=== PATIENT | female | born 1950 | race Caucasian/White ===

== ENCOUNTER 2021-04-01 08:00 | Outpatient (CLI) | payer MEDICARE, OTHER ==
--- NOTE | 2021-04-01 18:06 | XRAY Report ---
PROCEDURE: Chest 2 View X-Ray INDICATIONS: Exertional shortness of breath TECHNIQUE: 2 view(s) of the chest. COMPARISON: Thoracic spine radiographs 09/30/2011 FINDINGS: Surgical changes and devices: None. Lungs and pleura: No pleural effusions or pneumothorax. Lungs are clear. Mediastinum: Moderate-sized hiatal hernia, slightly increased from the thoracic spine radiographs obt and September 2011. Heart size appears to be within normal limits. Bones and chest wall: No suspicious bony abnormalities. Soft tissues appear unremarkable. IMPRESSION: No acute cardiopulmonary process demonstrated radiographically. Moderate size hiatal her lucas. Reviewed by: Dylan Mayberry MD on 04/01/2021 6:05 PM PDT Approved by: Dylan Mayberry MD on 04/01/2021 6:05 PM PDT Station ID: [id number]
== END 2021-04-01 23:59 | disposition home or self-care (01) ==
LOC: DI.S 08:00
PROVIDERS: ATTEND Physician Assistant Medical
DX: R06.09 Other forms of dyspnea (principal); R42 Dizziness and giddiness; K44.9 Diaphragmatic hernia without obstruction or gangrene

== ENCOUNTER 2021-04-01 08:00 | Outpatient (CLI) | payer MEDICARE, OTHER ==
[2021-04-01 20:04] LABS: BASOPHILS % (AUTO) 0.7 %; EOSINOPHILS # (AUTO) 0.1 10^3/uL (0.0-0.7); EOSINOPHILS % (AUTO) 2.1 %; HCT - HEMATOCRIT 28.1 % (37.0-47.0); HGB - HEMOGLOBIN 7.7 g/dL (12.0-16.0); LYMPHOCYTES # (AUTO) 1.9 10^3/uL (1.5-3.5); LYMPHOCYTES % (AUTO) 33.6 %; MEAN CORPUSCULAR HGB CONC 27.4 g/dL (32.0-36.0); MEAN CORPUSCULAR VOLUME 87.5 fL (81.0-99.0); MEAN PLATELET VOLUME 10.6 fL (7.9-10.8); MONOCYTES # (AUTO) 0.3 10^3/uL (0.0-1.0); MONOCYTES % (AUTO) 5.6 %; NEUTROPHILS # (AUTO) 3.3 10^3/uL (1.5-6.6); NEUTROPHILS % (AUTO) 57.7 %; PLT - PLATELET COUNT 50 10^3/uL (130-450); RED BLOOD COUNT 3.21 10^6/uL (4.20-5.40); RED CELL DISTRIBUTION WIDTH 15.6 % (12.0-15.0); WHITE BLOOD COUNT 5.8 x10^3/uL (4.8-10.8)
[2021-04-01 20:16] LABS: ALBUMIN 4.3 g/dL (3.2-5.5); ALBUMIN/GLOBULIN RATIO 1.2 (1.0-2.2); ALKALINE PHOSPHATASE 73 IU/L (42-121); ALT ALANINE AMINOTRANSFERASE 24 IU/L (10-60); AST ASPARTATE AMINOTRANSFERASE 23 IU/L (10-42); BILIRUBIN,TOTAL 0.7 mg/dL (0.2-1.0); BUN - BLOOD UREA NITROGEN 15 mg/dL (6-20); CALCIUM 9.9 mg/dL (8.5-10.3); CARBON DIOXIDE - CO2 27 mmol/L (21-32); CHLORIDE 104 mmol/L (101-111); CHOLESTEROL 227 mg/dL; CREATININE 0.6 mg/dL (0.4-1.0); GFR - MDRD 98 (>89); GLUCOSE 93 mg/dL (70-100); HDL CHOLESTEROL 76 mg/dL; LDL CHOLESTEROL,CALCULATED 126 mg/dL; LDL/HDL RATIO 1.7 (<4.4); POTASSIUM 3.9 mmol/L (3.5-5.0); SODIUM 141 mmol/L (135-145); TOTAL PROTEIN 7.9 g/dL (6.7-8.2); TRIGLYCERIDES 126 mg/dL; VLDL CHOLESTEROL 25 mg/dL
[2021-04-01 20:30] LABS: THYROID STIMULATING HORMONE 3.55 uIU/mL (0.34-5.60)
== END 2021-04-01 23:59 | disposition home or self-care (01) ==
LOC: LAB.S 08:00
PROVIDERS: ATTEND Physician Assistant Medical
DX: R06.09 Other forms of dyspnea (principal); R42 Dizziness and giddiness
CPT/HCPCS: 36415; 80053; 80061; 83721; 84443; 84484; 85025; 85379

== ENCOUNTER 2021-04-01 21:46 | Emergency (ER) | payer MEDICARE, OTHER ==
[2021-04-01] MEDS ORDERED: IOVERSOL 320 100 ML VIAL IVP ONE ×2 (22:12→23:00)
--- NOTE | 2021-04-01 22:40 | ED Physician Documentation ---
History of Present Illness - Stated complaint Stated Complaint: SOA/LIGHTHEADED - Chief complaint Chief Complaint: General - History obtained from History obtained from: Patient, Other (Dr. Ayala, pcp (d/w Dr Carney prior to sending patient here)) - Additonal information Additional information: 71-year-old woman presents with several weeks to months progressive dyspnea on exertion and weakness for which she saw Dr. Ayala today and had blood work done. Dr. Carreno sent her here with concern for elevated D-dimer, as well as derangements in her CBC including anemia with hemoglobin of 7.8. Patient endorses a history of ulcerative colitis but denies any rectal bleeding or dark stools. Denies vaginal bleeding or any other source of bleeding. endorses some intermittent dizziness over the past several weeks that is not acutely worsening today. denies cough or hemoptysis. no leg swelling. Review of Systems Ten Systems: 10 systems reviewed and negative Constitutional: denies: Fever, Chills Cardiac: denies: Chest pain / pressure Respiratory: reports: Dyspnea. denies: Cough GI: denies: Abdominal Pain, Bloody / black stool PD PAST MEDICAL HISTORY - Present Medications Home Medications: Ambulatory Orders Medication Instructions Recorded Confirmed Apixaban [Eliquis] 5 mg PO BID #30 tablet 04/02/21 Apixaban [Eliquis] 10 mg PO BID 10 Days #20 tablet 04/02/21 - Allergies Allergies/Adverse Reactions: Allergies Allergy/AdvReac Type Severity Reaction Status Date / Time No Known Drug Allergies Allergy Verified 04/01/21 21:59 PD ED PE NORMAL - Vitals Vital signs reviewed: Yes - General General: Alert and oriented X 3, No acute distress, Well developed/nourished - HEENT HEENT: Atraumatic, PERRL, EOMI - Neck Neck: Supple, no meningeal sign - Cardiac Cardiac: RRR - Respiratory Respiratory: No respiratory distress, Clear bilaterally - Abdomen Abdomen: Non tender, Non distended - Derm Derm: Normal color, Warm and dry - Extremities Extremities: No deformity - Neuro Neuro: Alert and oriented X 3 - Psych Psych: Normal mood, Normal affect Results - Vitals Vitals: Vital Signs - 24 hr 04/01/21 04/01/21 04/02/21 21:50 23:00 00:00 Temperature 36.5 C Heart Rate 98 88 82 Respiratory 18 17 16 Rate Blood Pressure 150/92 H 143/88 H 129/78 O2 Saturation 100 100 99 04/02/21 01:20 Temperature 36.5 C Heart Rate 88 Respiratory 16 Rate Blood Pressure 125/73 O2 Saturation 98 Oxygen O2 Source Room air - EKG (time done) 2208 Rate: Rate (enter#) (96) Rhythm: NSR Intervals: Normal [place] QRS: Normal Ischemia: Other (LVH, TWI in lead 3) - Labs Labs: Microbiology 04/02/21 00:12 Occult Blood - Final Stool Laboratory Tests 04/01/21 04/01/21 04/01/21 22:31 22:31 22:31 WBC 7.0 RBC 2.98 L Hgb 7.3 L Hct 25.0 L MCV 83.9 MCH 24.5 L MCHC 29.2 L RDW 15.6 H Plt Count 393 MPV 8.6 Neut # (Auto) 4.7 Lymph # (Auto) 1.5 [place] # (Auto) 0.6 Eos # (Auto) 0.1 Baso # (Auto) 0.1 Absolute Nucleated RBC 0.00 Nucleated RBC % 0.0 PT INR APTT VBG pH VBG pCO2 VBG pO2 VBG HCO3 VBG Total CO2 VBG O2 Saturation VBG Base Excess Sodium 136 Potassium 3.7 Chloride 100 L Carbon Dioxide 27 Anion Gap 9.0 BUN 17 Creatinine 0.6 Estimated GFR (MDRD) 98 Glucose 142 H Calcium 9.0 Troponin I High Sens B-Natriuretic Peptide Blood Type O NEGATIVE Antibody Screen NEGATIVE 04/01/21 04/01/21 04/01/21 22:31 22:31 22:31 WBC RBC Hgb Hct MCV MCH MCHC RDW Plt Count MPV Neut # (Auto) Lymph # (Auto) [place] # (Auto) Eos # (Auto) Baso # (Auto) Absolute Nucleated RBC Nucleated RBC % PT INR APTT VBG pH 7.388 VBG pCO2 39.5 L VBG pO2 50.7 H VBG HCO3 23.3 VBG Total CO2 24.5 VBG O2 Saturation 82.6 H VBG Base Excess -1.6 Sodium Potassium Chloride Carbon Dioxide Anion Gap BUN Creatinine Estimated GFR (MDRD) Glucose Calcium Troponin I High Sens 4.0 B-Natriuretic Peptide 76 Blood Type Antibody Screen 04/01/21 22:31 WBC RBC Hgb Hct MCV MCH MCHC RDW Plt Count MPV Neut # (Auto) Lymph # (Auto) [place] # (Auto) Eos # (Auto) Baso # (Auto) Absolute Nucleated RBC Nucleated RBC % PT 11.0 INR 1.0 APTT 26.7 VBG pH VBG pCO2 VBG pO2 VBG HCO3 VBG Total CO2 VBG O2 Saturation VBG Base Excess Sodium Potassium Chloride Carbon Dioxide Anion Gap BUN Creatinine Estimated GFR (MDRD) Glucose Calcium Troponin I High Sens B-Natriuretic Peptide Blood Type Antibody Screen PD MEDICAL DECISION MAKING - ED course ED course: 71-year-old woman presents with some subsegmental PE. Eliquis prescribed and Lovenox shot provided here in the emergency department. Patient has had ongoing symptoms for several weeks and is not acutely dizzy in the emergency department has no chest pain or shortness of breath, has no signs of demand ischemia on blood work therefore will hold off on transfusion for now. Rectal exam brown stool. Strict return precautions discussed. Patient will follow up with Dr. Ayala. Departure - Departure Disposition: Home, Self Care Clinical Impression: Pulmonary embolism, Anemia Condition: Stable Instructions: Embolism Pulmonary Dc Follow-Up: Carlyle Ayala DO [Provider Admit Priv/Credential] - Prescriptions: Apixaban [Eliquis] 10 mg PO BID 10 Days #20 tablet Apixaban [Eliquis] 5 mg PO BID #30 tablet Comments: You were seen in the emergency department for pulmonary embolism and for anemia. Your hemoglobin today was 7.3 in the emergency department. Please return immediately if you have any signs of bleeding, any new or worsening symptoms or other concerns. Follow-up with Dr. Ayala this week. You will need further workup to find out the cause of your anemia and pulmonary embolism. Take eliquis 10 mg twice daily for 7 days followed by 5 mg twice daily. I have provided enough medicine for one month supply. Dr. Ayala will continue your prescription. Discharge Date/Time: 04/02/21 01:20
[2021-04-01 22:43] LABS: BASOPHILS # (AUTO) 0.1 10^3/uL (0.0-0.1); BASOPHILS % (AUTO) 0.7 %; EOSINOPHILS # (AUTO) 0.1 10^3/uL (0.0-0.7); HGB - HEMOGLOBIN 7.3 g/dL (12.0-16.0); LYMPHOCYTES # (AUTO) 1.5 10^3/uL (1.5-3.5); LYMPHOCYTES % (AUTO) 21.3 %; MEAN CORPUSCULAR HEMOGLOBIN 24.5 pg (27.0-31.0); MEAN CORPUSCULAR HGB CONC 29.2 g/dL (32.0-36.0); MEAN CORPUSCULAR VOLUME 83.9 fL (81.0-99.0); MEAN PLATELET VOLUME 8.6 fL (7.9-10.8); MONOCYTES # (AUTO) 0.6 10^3/uL (0.0-1.0); MONOCYTES % (AUTO) 8.5 %; NEUTROPHILS # (AUTO) 4.7 10^3/uL (1.5-6.6); NEUTROPHILS % (AUTO) 67.2 %; PLT - PLATELET COUNT 393 10^3/uL (130-450); RED BLOOD COUNT 2.98 10^6/uL (4.20-5.40); RED CELL DISTRIBUTION WIDTH 15.6 % (12.0-15.0)
[2021-04-01 22:47] LABS: VBG BASE EXCESS -1.6 mmol/L (-2 - +2); VBG HCO3 23.3 mmol/L (23-28); VBG PCO2 39.5 mmHg (41-51); VBG PH 7.388 (7.31-7.41); VBG PO2 50.7 mmHg (25-47); VBG TOTAL CO2 24.5 mmol/L (24-29)
[2021-04-01 22:48] LABS: VBG OXYGEN SATURATION 82.6 % (60-80)
[2021-04-01 22:54] LABS: CREATININE 0.6 mg/dL (0.4-1.0); POTASSIUM 3.7 mmol/L (3.5-5.0)
[2021-04-01 22:58] LABS: PARTIAL THROMBOPLASTIN TIME 26.7 secs (24.9-33.3)
--- NOTE | 2021-04-01 23:26 | CT Report ---
PROCEDURE: ANGIO CHEST W/WO INDICATIONS: Protocol, dyspnea, high D-dimer CONTRAST: IV CONTRAST: Optiray 320 ml: 80 PO CONTRAST: *NO PO CONTRAST TECHNIQUE: After the administration of intravenous contrast, 2 mm axial images were acquired from the pulmonary apices to the posterior costophrenic angles during the arterial phase. In addition, 1 mm lung kernel and 5 mm soft tissue kernel reconstructions were performed. 3-dimensional coronal oblique maximum int ensity projection (MIP) reformats, 8 mm axial MIP, and 5 mm coronal and sagittal MPR reformats were t hen performed through the thorax. For radiation dose reduction, the following was used: automated exp osure control, adjustment of mA and/or kV according to patient size. COMPARISON: Chest radiographs performed earlier the same day. FINDINGS: Image quality: Excellent. Pulmonary arteries: Pulmonary arteries are normal in size. A few small filling defects are seen in t he peripheral subsegmental branches of the right lower lobe pulmonary artery is (for example, image 5 7 of series 5). There is nonopacification of a few peripheral subsegmental branches of the right uppe r lobe pulmonary artery. A subsegmental branch of the posterolateral left lung base is also noted. Gi thierry the small size and peripheral nature of the emboli as well as nonbreath-hold technique, additiona l small peripheral pulmonary emboli are not excluded. Lungs and pleura: No acute pulmonary opacity. Atelectasis is seen in the medial lung bases adjacent t o the hernia. No pleural effusions or pneumothorax. Central and peripheral airways are patent. Mediastinum: Heart size is normal, without pericardial effusion. No mediastinal or hilar adenopathy . Thoracic aorta is normal in caliber and enhancement. Esophagus is normal in caliber. A moderate h iatal hernia is present. Bones and chest wall: No suspicious bony lesions. No acute compression fracture is seen in the spine . No axillary or supraclavicular adenopathy. The thyroid is unremarkable. Abdomen: Cholelithiasis. A simple appearing cyst is seen in the right kidney. Visualized upper abdom inal solid organs otherwise appear normal in the early arterial phase of enhancement. IMPRESSION: 1.A few small subsegmental pulmonary emboli are seen peripherally in the bilateral lung bases and rig ht upper lobe. No signs of right heart strain. 2.Moderate hiatal hernia. 3.Cholelithiasis. An attempt was made to reach the treating emergency room physician by telephone at the time of this d ictation. Reviewed by: Too Harris MD on 04/01/2021 11:25 PM PDT Approved by: Too Harris MD on 04/01/2021 11:25 PM PDT Station ID: [id number]
[2021-04-02] MEDS ORDERED: ENOXAPARIN 80 MG/0.8 ML SYRINGE SUBQ STA (00:47)
[2021-04-02 01:21] VITALS: BP 125/73
== END 2021-04-02 01:20 | disposition home or self-care (01) ==
LOC: ED 21:46
DX: I26.94 Multiple subsegmental thrombotic pulmonary emboli without acute cor pulmonale (principal); D64.9 Anemia, unspecified; R06.09 Other forms of dyspnea; R42 Dizziness and giddiness; K44.9 Diaphragmatic hernia without obstruction or gangrene
CPT/HCPCS: 36415; 71046; 71275; 80048; 80053; 80061; 82270; 82803; 83880; 84443; 84484; 85025; 85379; 85610; 85730; 86850; 86900; 86901; 93005; 96372; 99283; 99284; J1650; Q9967; 82274; 83721

== ENCOUNTER 2021-04-03 15:25 | Outpatient (CLI) | payer MEDICARE, OTHER ==
[2021-04-03 20:02] LABS: BASOPHILS # (AUTO) 0.1 10^3/uL (0.0-0.1); BASOPHILS % (AUTO) 0.8 %; EOSINOPHILS # (AUTO) 0.2 10^3/uL (0.0-0.7); EOSINOPHILS % (AUTO) 2.6 %; HCT - HEMATOCRIT 25.2 % (37.0-47.0); HGB - HEMOGLOBIN 7.5 g/dL (12.0-16.0); LYMPHOCYTES # (AUTO) 1.8 10^3/uL (1.5-3.5); LYMPHOCYTES % (AUTO) 28.8 %; MEAN CORPUSCULAR HEMOGLOBIN 24.8 pg (27.0-31.0); MEAN CORPUSCULAR HGB CONC 29.8 g/dL (32.0-36.0); MEAN CORPUSCULAR VOLUME 83.4 fL (81.0-99.0); MEAN PLATELET VOLUME 9.3 fL (7.9-10.8); MONOCYTES # (AUTO) 0.5 10^3/uL (0.0-1.0); MONOCYTES % (AUTO) 8.1 %; NEUTROPHILS # (AUTO) 3.7 10^3/uL (1.5-6.6); NEUTROPHILS % (AUTO) 59.5 %; PLT - PLATELET COUNT 450 10^3/uL (130-450); RED BLOOD COUNT 3.02 10^6/uL (4.20-5.40); RED CELL DISTRIBUTION WIDTH 15.7 % (12.0-15.0); WHITE BLOOD COUNT 6.3 x10^3/uL (4.8-10.8)
[2021-04-03 20:18] LABS: % IRON SATURATION 6 % (20-50); IRON 30 ug/dL (28-170); TOTAL IRON BINDING CAPACITY 503 ug/dL (250-450); TRANSFERRIN 359 mg/dL (192-382)
[2021-04-03 20:32] LABS: FERRITIN 4.9 ng/mL (11.0-306.8)
== END 2021-04-03 15:26 | disposition home or self-care (01) ==
LOC: LAB.S 15:25
PROVIDERS: ATTEND Internal Medicine
DX: D64.9 Anemia, unspecified (principal); R06.09 Other forms of dyspnea; R42 Dizziness and giddiness
CPT/HCPCS: 36415; 81001; 82607; 82728; 83540; 83615; 84466; 85025; 87086

== ENCOUNTER 2021-04-16 14:34 | Outpatient (CLI) | payer MEDICARE, OTHER | END 2021-04-16 14:35 | disposition home or self-care (01) | LOC: LAB.S 14:34 | PROVIDERS: ATTEND Internal Medicine | DX: E61.1 Iron deficiency (principal); Z79.01 Long term (current) use of anticoagulants; Z86.711 Personal history of pulmonary embolism | CPT/HCPCS: 36416; 85610 ==

== ENCOUNTER 2021-08-09 14:23 | Outpatient (CLI) | payer MEDICARE, OTHER ==
[2021-08-09 20:01] LABS: BASOPHILS # (AUTO) 0.1 10^3/uL (0.0-0.1); BASOPHILS % (AUTO) 0.8 %; EOSINOPHILS # (AUTO) 0.1 10^3/uL (0.0-0.7); EOSINOPHILS % (AUTO) 2.3 %; HGB - HEMOGLOBIN 12.4 g/dL (12.0-16.0); LYMPHOCYTES # (AUTO) 1.6 10^3/uL (1.5-3.5); MEAN CORPUSCULAR HEMOGLOBIN 29.2 pg (27.0-31.0); MEAN CORPUSCULAR VOLUME 94.1 fL (81.0-99.0); MEAN PLATELET VOLUME 9.6 fL (7.9-10.8); MONOCYTES # (AUTO) 0.6 10^3/uL (0.0-1.0); MONOCYTES % (AUTO) 9.2 %; NEUTROPHILS # (AUTO) 3.6 10^3/uL (1.5-6.6); NEUTROPHILS % (AUTO) 60.4 %; PLT - PLATELET COUNT 367 10^3/uL (130-450); RED BLOOD COUNT 4.25 10^6/uL (4.20-5.40); RED CELL DISTRIBUTION WIDTH 15.7 % (12.0-15.0)
[2021-08-09 20:07] LABS: INR 1.1 (0.8-1.2); PT - PROTHROMBIN TIME 11.9 secs (9.9-12.6)
== END 2021-08-09 14:24 | disposition home or self-care (01) ==
LOC: LAB.S 14:23
PROVIDERS: ATTEND Internal Medicine
DX: E61.1 Iron deficiency (principal); D64.9 Anemia, unspecified; Z86.711 Personal history of pulmonary embolism; Z79.01 Long term (current) use of anticoagulants
CPT/HCPCS: 36415; 81001; 82728; 85025; 85610; 87086

== ENCOUNTER 2022-09-29 10:55 | Inpatient (IN) | payer MEDICARE, OTHER ==
[2022-09-29 11:47] LABS: BASOPHILS # (AUTO) 0.1 10^3/uL (0.0-0.1); BASOPHILS % (AUTO) 1.1 %; EOSINOPHILS # (AUTO) 0.1 10^3/uL (0.0-0.7); EOSINOPHILS % (AUTO) 0.9 %; HCT - HEMATOCRIT 28.3 % (37.0-47.0); HGB - HEMOGLOBIN 7.7 g/dL (12.0-16.0); LYMPHOCYTES # (AUTO) 0.8 10^3/uL (1.5-3.5); LYMPHOCYTES % (AUTO) 11.3 %; MEAN CORPUSCULAR HEMOGLOBIN 23.5 pg (27.0-31.0); MEAN CORPUSCULAR HGB CONC 27.2 g/dL (32.0-36.0); MEAN CORPUSCULAR VOLUME 86.3 fL (81.0-99.0); MONOCYTES # (AUTO) 0.4 10^3/uL (0.0-1.0); MONOCYTES % (AUTO) 5.9 %; NEUTROPHILS % (AUTO) 80.1 %; NRBC ABSOLUTE COUNT (AUTO) 0.07 x10^3/uL; NUCLEATED RED BLOOD CELLS AUTO 0.9 /100WBC; PLT - PLATELET COUNT 506 10^3/uL (130-450); RED BLOOD COUNT 3.28 10^6/uL (4.20-5.40); RED CELL DISTRIBUTION WIDTH 20.3 % (12.0-15.0); WHITE BLOOD COUNT 7.5 x10^3/uL (4.8-10.8)
[2022-09-29 11:52] LABS: SLIDE REVIEW? Indicated
[2022-09-29 11:58] LABS: PT - PROTHROMBIN TIME 11.5 secs (9.9-12.6)
--- NOTE | 2022-09-29 12:03 | XRAY Report ---
PROCEDURE: Chest 1 View X-Ray INDICATIONS: Chest Pain TECHNIQUE: One view of the chest was acquired. COMPARISON: None. FINDINGS: Surgical changes and devices: None. Lungs and pleura: No pleural effusions or pneumothorax. Lungs are clear. Mediastinum: Mediastinal contours appear normal. Heart size is normal. Bones and chest wall: No suspicious bony lesions. Overlying soft tissues appear unremarkable. IMPRESSION: No acute cardiopulmonary process. Reviewed by: Gerardo Vernon on 09/29/2022 12:02 PM PDT Approved by: Gerardo Vernon on 09/29/2022 12:02 PM PDT Station ID: [id number]
[2022-09-29 12:08] LABS: ALBUMIN 3.9 g/dL (3.2-5.5); ALBUMIN/GLOBULIN RATIO 1.3 (1.0-2.2); BILIRUBIN,TOTAL 0.3 mg/dL (0.2-1.0); CREATININE 0.8 mg/dL (0.4-1.0); POTASSIUM 3.8 mmol/L (3.5-5.0)
[2022-09-29] MEDS ORDERED: iohexoL-300 100 ML VIAL ONE (12:36)
--- NOTE | 2022-09-29 12:43 | ED Physician Documentation ---
History of Present Illness - Stated complaint Stated Complaint: SOA - Chief complaint Chief Complaint: Resp - Additonal information Additional information: Patient is a good historian. 72-year-old female presents to the emergency department for evaluation of exertional dyspnea. She states that about 5 weeks ago she had a head and chest cold and since then she has had some progressive shortness of air that has not improved. However in march 2021 the patient was found to have a subsegmental pulmonary embolism. She was initially rx Eliquis, but found it cost-prohibitive. Therefore her pcp started her on coumadin, but within 48 hours of taking it she was having gum bleeding and melena. Subsequently, she was able to start taking the eliquis and took it for nearly a year. However she states it always made her legs hurt and she felt "crummy" on it. In March 2022, she noted that she had melena so she stopped taking the Eliquis. She states that the melena resolved after about 5 days. She has a history of anemia and has been taking a lot of iron to help with that thus she often reports dark or melenic appearing stools. Patient reports that over the last several days she is unable to walk even short distances without severe shortness of air. She is denying chest pain. No orthopnea. No unilateral leg swelling. No recent surgeries, immobilization. Denies any history of cancer. The patient has a reported history of ulcerative colitis. Has not had a colonoscopy for 15 years. Reports that it is self managed with diet and biofeedback. PD PAST MEDICAL HISTORY - Past Surgical History Past Surgical History: Yes - Present Medications Home Medications: Ambulatory Orders Medication Instructions Recorded Confirmed Apixaban [Eliquis] 5 mg PO BID #30 tablet 04/02/21 Apixaban [Eliquis] 10 mg PO BID 10 Days #20 tablet 04/02/21 - Allergies Allergies/Adverse Reactions: Allergies Allergy/AdvReac Type Severity Reaction Status Date / Time No Known Drug Allergies Allergy Verified 09/29/22 11:10 - Social History Does the pt smoke?: No Smoking Status: Never smoker Does the pt drink ETOH?: No Does the pt have substance abuse?: No - Immunizations Immunizations are current?: No Immunizations: TDAP >10years/unknown PD ED PE NORMAL - General General: Alert and oriented X 3, No acute distress - HEENT HEENT: PERRL - Neck Neck: Supple, no meningeal sign, No adenopathy - Cardiac Cardiac: RRR (Mild tachycardia sinus rhythm on the monitor, rate of 100), Strong equal pulses - Respiratory Respiratory: No respiratory distress, Clear bilaterally - Abdomen Abdomen: Normal bowel sounds, Soft, Non tender - Rectal Rectal: Other (Digital rectal exam reveals a dark brown stool. No tenderness. Guaiac pending) - Back Back: No CVA TTP, No spinal TTP - Derm Derm: Normal color, Warm and dry, No rash - Extremities Extremities: No deformity - Neuro Neuro: Alert and oriented X 3, sports centre manager 2-12 intact Eye Opening: Spontaneous Motor: Obeys Commands Verbal: Oriented GCS Score: 15 Results - Vitals Vitals: Vital Signs - 24 hr 09/29/22 09/29/22 11:05 13:30 Temperature 36.6 C Heart Rate 110 H 95 Respiratory 16 18 Rate Blood Pressure 140/83 H 155/78 H O2 Saturation 97 97 Oxygen O2 Source Room air - EKG (time done) 1128 EKG releavant findings:: EKG personally interpreted by author of this note. Relevant findings are: Rate: Rate (enter#) (101), Tachy (101) Rhythm: NSR [place]: Normal Intervals: Normal [place] QRS: Normal Ischemia: Normal ST segments Compare to prior EKG: Old EKG unavailable Computer interpretation: Agree with computer - Labs Labs: Microbiology 09/29/22 12:45 Occult Blood - Final Stool Laboratory Tests 09/29/22 09/29/22 09/29/22 11:42 11:42 11:42 WBC 7.5 RBC 3.28 L Hgb 7.7 L Hct 28.3 L MCV 86.3 MCH 23.5 L MCHC 27.2 L RDW 20.3 H Plt Count 506 H MPV 9.0 Neut # (Auto) 6.0 Lymph # (Auto) 0.8 L [place] # (Auto) 0.4 Eos # (Auto) 0.1 Baso # (Auto) 0.1 Absolute Nucleated RBC 0.07 Nucleated RBC % 0.9 Manual Slide Review Indicated RBC Morph Micro Appear 2+ ANISOCYTOSIS PT 11.5 INR 1.0 D-Dimer Sodium 138 Potassium 3.8 Chloride 106 Carbon Dioxide 24 Anion Gap 8.0 BUN 17 Creatinine 0.8 Estimated GFR (MDRD) 70 L Glucose 111 H Calcium 9.0 Total Bilirubin 0.3 AST 22 ALT 19 Alkaline Phosphatase 84 Troponin I High Sens B-Natriuretic Peptide Total Protein 7.0 Albumin 3.9 Globulin 3.1 Albumin/Globulin Ratio 1.3 Lipase 31 09/29/22 09/29/22 09/29/22 11:42 11:42 11:43 WBC RBC Hgb Hct MCV MCH MCHC RDW Plt Count MPV Neut # (Auto) Lymph # (Auto) [place] # (Auto) Eos # (Auto) Baso # (Auto) Absolute Nucleated RBC Nucleated RBC % Manual Slide Review RBC Morph Micro Appear PT INR D-Dimer 781.5 H Sodium Potassium Chloride Carbon Dioxide Anion Gap BUN Creatinine Estimated GFR (MDRD) Glucose Calcium Total Bilirubin AST ALT Alkaline Phosphatase Troponin I High Sens 8.3 B-Natriuretic Peptide 73 Total Protein Albumin Globulin Albumin/Globulin Ratio Lipase - Rads (name of study) cxr Relevant Findings:: Final report received (No acute cardiopulmonary process) CT angio Relevant Findings:: Final report received (Large burden of segmental pulmonary emboli with findings concerning for heart strain. Large hiatal hernia.) PD Medical Decision Making - ED course Complexity details: reviewed results, re-evaluated patient, considered differential, d/w patient, d/w curriculum consultant ED course: [id number] female who has a reported history of ulcerative colitis and anemia presents to the emergency department for evaluation of 5 weeks of exertional dyspnea. She does have a history of previous pulmonary embolus diagnosed in March 2021. She reports she did not tolerate Coumadin as it caused immediate gum and GI bleeding. Subsequently she took Eliquis for about 1 year. She states it made her feel crummy but she reports she again developed melena in March 2022 and on her own accord stopped taking it. Here in the emergency department our differential included ACS, recurrent PE, pneumonia. CBC, electrolytes D-dimer, troponin were all completed. Per my interpretation she has a fairly profound anemia with a hemoglobin of 7.7. This is in contrast to a relatively normal hemoglobin in July 2021 which was 12. Patient reports dark stools but also admits to taking iron. I did do a stool guaiac and it was negative. The source of the anemia is not clear though the patient does report a history of ulcerative colitis. She has reportedly never been seen by hemat ologist/oncologist and has not had a colonoscopy for at least 15 years. Patient is mildly tachycardic at rest with a heart rate of about 100 but with ambulation it goes into the 120s. She is not hypotensive. Her D-dimer was noted to be elevated. She had a high pretest probability of having a recurrent PE given her history and subsequently a CT pulmonary angiogram was ordered. Per the radiologist interpretation there are large bilateral segmental PEs causing a moderate amount of right heart strain. Given this finding the patient would indeed benefit from inpatient hospitalization, transition to anticoagulation and an echocardiogram. I spoken with our hospitalist today Dr. Ventura who agrees to bring the patient in. I have started her with a dose of Lovenox 80 mg subcutaneously. I have also discussed with the patient the plan to bring her in for at least 24 hours observation in order to obtain the appropriate echo and she is in agreement. Departure - Departure Disposition: ED Place in Observation Clinical Impression: Anemia Pulmonary embolism Qualifiers: Pulmonary embolism type: other Chronicity: acute Acute cor pulmonale presence: unspecified Qualified Code(s): I26.99 - Other pulmonary embolism without acute cor pulmonale
[2022-09-29] MEDS ORDERED: iohexoL-300 100 ML VIAL IVP ONE (13:29)
--- NOTE | 2022-09-29 13:48 | CT Report ---
PROCEDURE: ANGIO CHEST W/WO INDICATIONS: SOA; hx of PE; + anemia CONTRAST: 80ml Omnipaque 300 TECHNIQUE: After the administration of intravenous contrast, 2 mm axial images were acquired from the pulmonary apices to the posterior costophrenic angles during the arterial phase. In addition, 1 mm lung kernel and 5 mm soft tissue kernel reconstructions were performed. 3-dimensional coronal oblique maximum int ensity projection (MIP) reformats, 8 mm axial MIP, and 5 mm coronal and sagittal MPR reformats were t hen performed through the thorax. For radiation dose reduction, the following was used: automated exp osure control, adjustment of mA and/or kV according to patient size. COMPARISON: 04/01/2021 FINDINGS: Image quality: Excellent. Large vessels: Large burden of segmental pulmonary emboli, worse in the right lower lobe. Lungs and pleura: No pleural effusions. No pneumothorax. No suspicious pulmonary nodules which requi re follow up. Mediastinum: Heart size is normal. No pericardial effusions. No mediastinal adenopathy by size criter ia. There is dilation of the right ventricle relative to the left, and straightening of the anterior ventricular septum. Large hiatal hernia. Chest wall and lower neck: Thyroid is unremarkable. No axillary or supraclavicular adenopathy by size . Bones: No aggressive osseous abnormality. Upper Abdomen: Cholelithiasis without evidence of acute cholecystitis. IMPRESSION: Large burden of segmental pulmonary emboli, with findings concerning for heart strain. Large hiatal hernia. Above discussed with LAZARO Upton at the time of dictation. Reviewed by: Gerardo Vernon on 09/29/2022 1:47 PM PDT Approved by: Gerardo Vernon on 09/29/2022 1:47 PM PDT Station ID: [id number]
[2022-09-29] MEDS ORDERED: MORPHINE 2 MG/ML CARPUJECT IVP PRN (13:51)
[2022-09-29] MEDS ORDERED: ENOXAPARIN 100 MG/ML SYRINGE SUBQ STA (13:51)
[2022-09-29] MEDS ORDERED: HYDROcod/ACETAM 5/325 MG TABLET PO PRN (13:51)
[2022-09-29] MEDS ORDERED: SODIUM CHLORIDE FLUSH 0.9% 10 ML SYRINGE IVP PRN (13:51)
[2022-09-29] MEDS ORDERED: ACETAMINOPHEN 325 MG TABLET PO PRN (13:51)
[2022-09-29] MEDS ORDERED: ONDANSETRON ODT 4 MG TABLET TL PRN (13:51)
--- NOTE | 2022-09-29 15:11 | PHARMACY PROGRESS NOTE ---
- Best Possible Medication History Admit Date and Time: 09/29/22 6365 Processed by: Pharmacy Medication History completed: Yes Patient Interview: Pt interview ONLY source (GETS ELIQUIS FROM [facility]. WARFARIN MADE GUMS BLEED) As the person ultimately responsible for medication therapy, providers are able to order a medication from an existing home medication list in [facility] via the "Reconcile Routine" prior to Confirmation of that medication by bioinformatics support specialist. Such practice is discouraged except when the physician, in their clinical judgment, deems that a medical need exists for a medication without regard to previous use.
[2022-09-29] MEDS: SODIUM CHLORIDE FLUSH 0.9% 10 ML SYRINGE IVP SCH ×2 (15:51→21:19)
--- NOTE | 2022-09-29 16:32 | HISTORY & PHYSICAL EXAMINATION ---
Chief Complaint - Chief Complaint Chief Complaint: Shortness of breath History of Present Illness - Admitted From Admitted From:: ED - History Obtained From Records Reviewed: ED History obtained from: Patient, ED Provider Exam Limitations: None - History of Present Illness HPI Comment/Other: This patient is a 72-year-old female with a past medical history of PE approximately 18 months ago, history of ulcerative colitis, chronic anemia,who presented to the ED after progressively worsening shortness of breath and dyspnea on exertion that she states has never really gone away for at least the last year since her first pulmonary embolus but had culminated in the last few weeks after she developed a respiratory infection. She decided to come in to get it checked out because she started to have difficulty ambulating within her house[place]. She states after her last PE she was given a prescription for Eliquis and she followed up with the PCP who gave her a prescription with refills up to 1 year. The refills ran out in March 2022. Around that time she started to notice what looked like dark stools and she suspected a GI bleed so she stopped taking the Eliquis. Since that time she is had no follow-up. In the ED today, she presented again anemic with a hemoglobin of 7.7 and complaining of shortness of air however her oxygen saturation on room air was normal. CT angiogram showed right-sided segmental pulmonary embolus, larger than the previous episode, with evidence of right heart strain. Lab work was relatively unremarkable and the patient's physical exam was reassuring however given her history hospital admission for observation was requested. She was given 1 dose of therapeutic Lovenox prior to admission. History - Past Medical History Cardiovascular: reports: None Respiratory: reports: Shortness of breath, Other (PE) GI: reports: Ulcerative colitis - Past Surgical History Ortho: reports: Other (De in her right lower leg) Meds/Allgy - Home Medications Home Medications: Ambulatory Orders Medication Instructions Recorded Confirmed Apixaban [Eliquis] 2.5 mg PO DAILY 09/29/22 09/29/22 Ferrous Sulfate [Feosol] 1 tab PO Q48H 09/29/22 09/29/22 Molasses 30 ml PO TID 09/29/22 09/29/22 Multivitamin W/Minerals [Theragran 1 tab PO DAILY 09/29/22 09/29/22 M] - Allergies Allergies/Adverse Reactions: Allergies Allergy/AdvReac Type Severity Reaction Status Date / Time No Known Drug Allergies Allergy Verified 09/29/22 11:10 Review of Systems - Constitutional Constitutional: reports: Fatigue - Respiratory Respiratory: reports: SOB at rest, SOB with exertion - Gastrointestinal Gastrointestinal: reports: Black stools - Hematologic/Lymphatic Hematologic/Lymphatic: reports: Anemia, Other - All Other Systems All Other Systems: reports: Reviewed and negative Prior Level of Functionality: Independent Exam - Vital Signs Reviewed Vital Signs: Yes Vital Signs: Vital Signs x48h Temp Pulse Pulse Pulse Resp BP BP 09/29/22 16:01 36.8 C 104 H 20 138/74 H 09/29/22 14:28 36.9 C 100 17 09/29/22 13:30 95 18 155/78 H 09/29/22 11:05 36.6 C 110 H 16 140/83 H BP Pulse Ox 09/29/22 16:01 97 09/29/22 14:28 150/75 H 100 09/29/22 13:30 97 09/29/22 11:05 97 - Physical Exam General Appearance: positive: No acute distress, Alert Eyes Bilateral: positive: Normal inspection, EOMI ENT: positive: ENT inspection nml Neck: positive: Nml inspection, Thyroid nml Respiratory: positive: Chest non-tender, No respiratory distress, Breath sounds nml Cardiovascular: positive: Regular rate & rhythm, No murmur, No gallop Abdomen: positive: Non-tender, No organomegaly, Nml bowel sounds, No distention Back: positive: Nml inspection Skin: positive: Color nml, No rash Extremities: positive: Non-tender, Full ROM. negative: Pedal edema, Calf tenderness Neurologic/Psychiatric: positive: Oriented x3, CN's nml (2-12) Conclusion/Plan - Problem List (1) Pulmonary embolism Conclusion/Plan: Patient presents with symptomatic pulmonary embolus without hypoxia or respi ratory failure. CT report and images reviewed. Patient hemodynamically stable. Given 1 dose of therapeutic Lovenox in the ED. We will continue Lovenox twice daily while in hospital. We will check echocardiogram to evaluate right heart strain. Patient states she has multiple doses an adequate supply of Eliquis remaining at home that she can resume when discharged. If doing well and hemodynamically stable with no concerning findings on the echocardiogram patient can likely discharge home in the a.m. She should probably follow-up with hematology given this is now her second episode of PE. Qualifiers: Pulmonary embolism type: other Chronicity: acute Acute cor pulmonale presence: unspecified (2) Anemia Conclusion/Plan: Patient has a history of chronic anemia. She states she has not had a colonoscopy for over 15 years. She takes iron supplements that she is not actively taking now. States she recently had dark stools which is why she stopped taking Eliquis and states that they stopped after that. Currently no indication for transfusion as her anemia today is likely chronic and at baseline however she should have a outpatient follow-up for colonoscopy and follow-up with PCP and possibly heme-onc regarding the anemia. I will add iron studies to the a.m. labs. (3) Ulcerative colitis Conclusion/Plan: Patient states this is very mild and well controlled without medications or treatment. She states she goes years without flareups. We will monitor, no acute management required at this time. - Lab Results Lab results reviewed: Yes Fish Bones: 09/29/22 11:42 09/29/22 11:42 - Diagnostic Imaging Results Diagnostic Imaging Results: positive: Prelim report reviewed Core Measures - Anticipated LOS I expect patient to be DC'd or transferred within 96 hours.: Yes - DVT/VTE - Prophylaxis VTE/DVT Device ordered at admit?: Yes
[2022-09-29] MEDS: ENOXAPARIN 80 MG/0.8 ML SYRINGE SUBQ SCH (21:19)
[2022-09-30 05:03] LABS: HGB - HEMOGLOBIN 7.1 g/dL (12.0-16.0); MEAN CORPUSCULAR HEMOGLOBIN 23.5 pg (27.0-31.0); MEAN CORPUSCULAR HGB CONC 27.3 g/dL (32.0-36.0); MEAN CORPUSCULAR VOLUME 86.1 fL (81.0-99.0); MEAN PLATELET VOLUME 9.5 fL (7.9-10.8); RED BLOOD COUNT 3.02 10^6/uL (4.20-5.40); RED CELL DISTRIBUTION WIDTH 20.3 % (12.0-15.0); WHITE BLOOD COUNT 6.9 x10^3/uL (4.8-10.8)
[2022-09-30 05:12] LABS: CALCIUM 8.5 mg/dL (8.5-10.3); CREATININE 0.7 mg/dL (0.4-1.0); POTASSIUM 4.1 mmol/L (3.5-5.0)
[2022-09-30 07:19] LABS: % IRON SATURATION 2 % (20-50); IRON 10 ug/dL (28-170); TOTAL IRON BINDING CAPACITY 448 ug/dL (250-450); TRANSFERRIN 320 mg/dL (192-382)
[2022-09-30] MEDS: ENOXAPARIN 80 MG/0.8 ML SYRINGE SUBQ SCH (08:41)
[2022-09-30] MEDS: SODIUM CHLORIDE FLUSH 0.9% 10 ML SYRINGE IVP SCH ×2 (08:41→16:18)
[2022-09-30] MEDS: FERROUS SULFATE 325 MG TABLET PO SCH (08:48)
[2022-09-30] MEDS: MULTIVITAMIN W/MINERALS TABLET PO SCH (08:48)
--- NOTE | 2022-09-30 15:33 | PROVIDER PROGRESS NOTE ---
Assessment/Plan - Problem List (1) Pulmonary embolism Qualifiers: Pulmonary embolism type: other Chronicity: acute Acute cor pulmonale presence: with acute cor pulmonale Qualified Code(s): I26.09 - Other pulmonary embolism with acute cor pulmonale Assessment/Plan: Patient presents with symptomatic pulmonary embolus. She was severely tachypneic as well as orthostatic with activity. There has been no chest pain CT report and images were reviewed. She was sytarted on therapeutic Lovenox BID Her Echocardiogram was done today and confirms right heart strain; she has a dilated R heart and severe pulm HTN , PA pressure 97 mmHg. Vital signs were reviewed. At rest she is not desaturating. In the upright position she is very tachycardic and is symptomatic with lightheadedness and she is also very dyspnea when upright. I suspect her clot burden in the lungs is so high that she has impaired LV preload. Plan: We will admit her from Observation status to Inpatient status Remain on telemetry Will obtain orthostatic vital signs. We will change her therapeutic Lovenox twice daily dose to Eliquis 10 mg twice daily dose (for PE). She told the admitting provider that she has 5 mg doses at home and was cutting these in half using 2.5, before4 stopping that entirely in 03/2022, due to black stools. I discussed with her that the proper Eliquis dose is 10 mg twice daily for 1 week. Because she has had significant GI bleeds before, will monitor for GI blood loss with these new anticoagulants (therapeutic Lovenox changing to therapeutic, high-dose Eliquis). If she has a recurrence of GI bleed she will need to be transferred to a facility with higher level of care than can insert an IVC filter. In addition, because this is a recurrence of PE, she will need hematology work- up to see if she has a reason/provoked PEs. I explained all the above to the patient and the plan Qualifiers: Pulmonary embolism type: other Chronicity: acute Acute cor pulmonale presence: unspecified (2) Anemia Conclusion/Plan: Patient has a history of chronic anemia. She states she has not had a colonoscopy for over 15 years. She takes iron supplements. She had black stools in Mar 2022 which is why she stopped taking Eliquis and states that melana stopped after that. Labs were all reviewed. The hemoglobin has fallen to 7.1 today. Orthostatic vital signs were done and she is tachycardic at rest and has signs of orthostasis. Iron studies were done today and show low Iron stoes and saturation of 2%. Her guaiac stool test came back negative Plan: We will transfuse 1 unit PRBC today. Follow CBC daily. Target hemoglobin for her will be 8, because of her severe symptoms in the face of an acute PE. We will continue with her dietary iron supplement. If she has a recurrence of GI bleed she will need to be transferred to a facility with higher level of care than can insert an IVC filter. She understands that currently the anticoagulant for the PE is necessary, especially since she had a heme-negative stool on guaic test. She will need evaluation by GI for recurrent GI bleeds as well as Heme eval, both after discharge since we have no specialties here (3) Orthostatic hypotension Patient is tachycardic at rest this morning, with heart rate of 107 in sinus rhythm. Her first set of orthostatic vital signs done today showed a systolic drop of 13 mmHg and a heart rate increase of 12 points. After [id number] a Unit of blood, in the afternoon, she still had a drop of 18 mmHg in systolic BP. Plan: She is not yet ready for discharge, will dmit to Inpatient status. Unfortunately, she has 2 problems: her large pulmonary embolism load may be diminishing her LV preload, plus her marked anemia is adding to the current orthostasis. Will continue to manage the PE with DOAC treatment and also follow her hemoglobin and transfuse if needed. Will obtain orthostatic vital signs and adjust any meds, if needed. (4) Pulmonary hypertension From her Echo done today, she has a PA pressure of 97 mmHg. This is due to her PE and describes how severe her right heart strain is. She is very symptomatic with this: She describes that yesterday just standing and walking 2 steps made her dizzy as well as very tachypneic Plan: Continue with management as in #1 She will need an oximetry walk test on the day of discharge to see if she needs new home O2. I described to her what this is and she would agree to use home O2 (5) Ulcerative colitis Conclusion/Plan: Patient states this is very mild and well controlled without medications or treatment. She states she goes years without flareups. Plan: We will monitor, no acute management required at this time. - Current Meds Current Meds: Current Medications Generic Name Dose Route Start Last Admin Trade Name Terrell PRN Reason Stop Dose Admin Ferrous Sulfate 325 mg 09/30/22 09:00 09/30/22 08:48 Ferrous Sulfate 325 Mg Tablet PO 325 mg DAILY JULI Administration Multivitamins/Minerals 1 tab 09/30/22 09:00 09/30/22 08:48 Multivitamin W/Minerals Tablet PO 1 tab DAILY JULI Administration Sodium Chloride 10 ml 09/29/22 17:00 09/30/22 08:41 Sodium Chloride Flush 0.9% 10 Ml Syringe IVP 10 ml 0100,0900,1700 JULI Administration - Lab Result Fish Bone Diagrams: 09/30/22 04:36 09/30/22 04:36 - Additional Planning My Orders: My Active Orders 09/30/22 09:00 Ferrous Sulfate [Feosol] 325 mg PO DAILY Multivitamin W/Minerals [Theragran M] 1 tab PO DAILY 09/30/22 09:09 Orthostatic [Vital Signs - Orthostatic] [RC] Q4HR 09/30/22 10:24 Transfuse RBCs Leukoreduced [RC] .ONCE 09/30/22 13:10 Telemetry- [RC] Q4HR 09/30/22 15:22 Admit [Admit \ Transfer \ Status] [RC] .ONCE 09/30/22 21:00 Apixaban [Eliquis] 10 mg PO BID Subjective - Subjective Patient Reports: Dizzines, Shortness of Breath (Whenever she stands and takes just 2 steps, she is dizzy and is short of breath. At rest she is saturating adequately. No walking saturations have been documented yet.) Objective Vital Signs: Vital Signs - 24 hr 09/29/22 09/29/22 09/30/22 16:01 20:00 00:03 Temperature 36.8 C 37.1 C 37.1 C Heart Rate [ 104 H 108 H 103 H Brachial] Heart Rate [ Monitoring electrodes] Respiratory 20 24 18 Rate Blood Pressure 138/74 H 125/63 [Left Brachial artery] Blood Pressure 130/69 [Right Brachial artery] O2 Saturation 97 97 94 09/30/22 09/30/22 09/30/22 04:32 07:47 12:06 Temperature 37.2 C 37.1 C 37.4 C Heart Rate [ 109 H 95 Brachial] Heart Rate [ 92 Monitoring electrodes] Respiratory 18 22 16 Rate Blood Pressure [Left Brachial artery] Blood Pressure 122/56 L 125/76 144/78 H [Right Brachial artery] O2 Saturation 96 98 97 09/30/22 09/30/22 12:22 15:03 Temperature 36.7 C 37.1 C Heart Rate [ Brachial] Heart Rate [ 97 93 Monitoring electrodes] Respiratory 16 16 Rate Blood Pressure [Left Brachial artery] Blood Pressure 137/70 H 145/81 H [Right Brachial artery] O2 Saturation 98 94 Oxygen O2 Source Room air I&O (Last 24 Hrs): Intake and Output Totals x24h 09/28/22 09/29/22 09/30/22 23:59 23:59 23:59 Intake Total 200 660 Balance 200 660 General: Alert, Oriented x3 HEENT: Mucous membr. moist/pink, Other (Pale) Neuro: Alert, Non Focal Cardiovascular: Regular rate, Other (3/6 syst murmur) Respiratory: No respiratory distress (at rest), Wheezes (scattered ant wheeze) Abdomen: Normal bowel sounds, Soft Extremities: No clubbing, No edema, No tenderness/swelling - Results Results: Laboratory Results WBC 6.9 x10^3/uL (4.8-10.8) 09/30/22 04:36 RBC 3.02 10^6/uL (4.20-5.40) L 09/30/22 04:36 Hgb 7.1 g/dL (12.0-16.0) L 09/30/22 04:36 Hct 26.0 % (37.0-47.0) L 09/30/22 04:36 MCV 86.1 fL (81.0-99.0) 09/30/22 04:36 MCH 23.5 pg (27.0-31.0) L 09/30/22 04:36 MCHC 27.3 g/dL (32.0-36.0) L 09/30/22 04:36 RDW 20.3 % (12.0-15.0) H 09/30/22 04:36 Plt Count 477 10^3/uL (130-450) H 09/30/22 04:36 MPV 9.5 fL (7.9-10.8) 09/30/22 04:36 Neut # (Auto) 6.0 10^3/uL (1.5-6.6) 09/29/22 11:42 Lymph # (Auto) 0.8 10^3/uL (1.5-3.5) L 09/29/22 11:42 [place] # (Auto) 0.4 10^3/uL (0.0-1.0) 09/29/22 11:42 Eos # (Auto) 0.1 10^3/uL (0.0-0.7) 09/29/22 11:42 Baso # (Auto) 0.1 10^3/uL (0.0-0.1) 09/29/22 11:42 Absolute Nucleated RBC 0.07 x10^3/uL 09/29/22 11:42 Nucleated RBC % 0.9 /100WBC 09/29/22 11:42 Manual Slide Review Indicated 09/29/22 11:42 RBC Morph Micro Appear 2+ HYPOCHROMASIA (NORMAL) 1+ SCHISTOCYTES (NORMAL) 1+ OVALOCYTES (NORMAL) 1+ POLYCHROMASIA (NORMAL) 2+ ANISOCYTOSIS (NORMAL) 09/29/22 11:42 RBC Morph Micro Appear 2+ HYPOCHROMASIA (NORMAL) 1+ SCHISTOCYTES (NORMAL) 1+ OVALOCYTES (NORMAL) 1+ POLYCHROMASIA (NORMAL) 2+ ANISOCYTOSIS (NORMAL) 09/29/22 11:42 RBC Morph Micro Appear 2+ HYPOCHROMASIA (NORMAL) 1+ SCHISTOCYTES (NORMAL) 1+ OVALOCYTES (NORMAL) 1+ POLYCHROMASIA (NORMAL) 2+ ANISOCYTOSIS (NORMAL) 09/29/22 11:42 RBC Morph Micro Appear 2+ HYPOCHROMASIA (NORMAL) 1+ SCHISTOCYTES (NORMAL) 1+ OVALOCYTES (NORMAL) 1+ POLYCHROMASIA (NORMAL) 2+ ANISOCYTOSIS (NORMAL) 09/29/22 11:42 RBC Morph Micro Appear 2+ HYPOCHROMASIA (NORMAL) 1+ SCHISTOCYTES (NORMAL) 1+ OVALOCYTES (NORMAL) 1+ POLYCHROMASIA (NORMAL) 2+ ANISOCYTOSIS (NORMAL) 09/29/22 11:42 PT 11.5 secs (9.9-12.6) 09/29/22 11:42 INR 1.0 (0.8-1.2) 09/29/22 11:42 D-Dimer 781.5 ng/mL (200.0-255.0) H 09/29/22 11:43 Sodium 137 mmol/L (135-145) 09/30/22 04:36 Potassium 4.1 mmol/L (3.5-5.0) 09/30/22 04:36 Chloride 105 mmol/L (101-111) 09/30/22 04:36 Carbon Dioxide 25 mmol/L (21-32) 09/30/22 04:36 Anion Gap 7.0 (6-13) 09/30/22 04:36 BUN 13 mg/dL (6-20) 09/30/22 04:36 Creatinine 0.7 mg/dL (0.4-1.0) 09/30/22 04:36 Estimated GFR (MDRD) 82 (>89) L 09/30/22 04:36 Glucose 121 mg/dL (70-100) H 09/30/22 04:36 Calcium 8.5 mg/dL (8.5-10.3) 09/30/22 04:36 Iron 10 ug/dL (28-170) L 09/30/22 04:36 TIBC 448 ug/dL (250-450) 09/30/22 04:36 % Saturation 2 % (20-50) L 09/30/22 04:36 Transferrin 320 mg/dL (192-382) 09/30/22 04:36 Total Bilirubin 0.3 mg/dL (0.2-1.0) 09/29/22 11:42 AST 22 IU/L (10-42) 09/29/22 11:42 ALT 19 IU/L (10-60) 09/29/22 11:42 Alkaline Phosphatase 84 IU/L (42-121) 09/29/22 11:42 Troponin I High Sens 8.3 ng/L (2.3-14.8) 09/29/22 11:42 B-Natriuretic Peptide 73 pg/mL (5-100) 09/29/22 11:42 Total Protein 7.0 g/dL (6.7-8.2) 09/29/22 11:42 Albumin 3.9 g/dL (3.2-5.5) 09/29/22 11:42 Globulin 3.1 g/dL (2.1-4.2) 09/29/22 11:42 Albumin/Globulin Ratio 1.3 (1.0-2.2) 09/29/22 11:42 Lipase 31 U/L (22-51) 09/29/22 11:42 Blood Type O NEGATIVE 09/30/22 10:36 Antibody Screen NEGATIVE 09/30/22 10:36 Crossmatch IS Only See Detail 09/30/22 10:36
[2022-09-30] MEDS: APIXABAN 5 MG TABLET PO SCH (20:35)
[2022-10-01] MEDS: SODIUM CHLORIDE FLUSH 0.9% 10 ML SYRINGE IVP SCH ×3 (01:00→17:03)
[2022-10-01 05:29] LABS: HCT - HEMATOCRIT 29.5 % (37.0-47.0); HGB - HEMOGLOBIN 8.3 g/dL (12.0-16.0); MEAN CORPUSCULAR HEMOGLOBIN 24.4 pg (27.0-31.0); MEAN CORPUSCULAR HGB CONC 28.1 g/dL (32.0-36.0); MEAN CORPUSCULAR VOLUME 86.8 fL (81.0-99.0); RED BLOOD COUNT 3.4 10^6/uL (4.20-5.40); RED CELL DISTRIBUTION WIDTH 19.4 % (12.0-15.0); WHITE BLOOD COUNT 6.5 x10^3/uL (4.8-10.8)
[2022-10-01 05:37] LABS: CALCIUM 8.4 mg/dL (8.5-10.3); CREATININE 0.7 mg/dL (0.4-1.0); POTASSIUM 4.1 mmol/L (3.5-5.0)
[2022-10-01] MEDS: APIXABAN 5 MG TABLET PO SCH ×2 (08:51→20:55)
[2022-10-01] MEDS: FERROUS SULFATE 325 MG TABLET PO SCH (08:51)
[2022-10-01] MEDS: MULTIVITAMIN W/MINERALS TABLET PO SCH (08:52)
[2022-10-01] MEDS ORDERED: MORPHINE 2 MG/ML CARPUJECT IVP PRN (09:04)
--- NOTE | 2022-10-01 13:39 | PROVIDER PROGRESS NOTE ---
Assessment/Plan - Problem List (1) Pulmonary embolism Qualifiers: Pulmonary embolism type: other Chronicity: acute Acute cor pulmonale presence: with acute cor pulmonale Qualified Code(s): I26.09 - Other pulmonary embolism with acute cor pulmonale Assessment/Plan: Patient presented with symptomatic pulmonary embolus. She was severely tachypneic as well as orthostatic with activity. There has been no chest pain CT report and images were reviewed. She was started on therapeutic Lovenox BID then I have transitioned her to high dose Eliquis 10 mg twice daily for PE treatment. She told the admitting provider that she had Eliquis 5 mg doses at home and was cutting these in half using 2.5, before stopping that entirely in 03/2022, due to black stools. I discussed with her yesterday that the proper Eliquis dose is 10 mg twice daily for 1 week. Her Echocardiogram was done and confirmed right heart strain; she has a dilated R heart and severe pulm HTN , PA pressure 72 mmHg (on final report). Vital signs were reviewed. At rest she is not desaturating. In the upright position she was very tachycardic and is symptomatic with lightheadedness. And she is also very dyspnea when moving. I suspect her clot burden in the lungs is so high that she has diminished LV preload. We admitted her from Observation status to Inpatient status due to orthostasis Plan: Remain on telemetry Continue to check orthostatic vital signs. Continue Eliquis 10 mg BID Because she has had significant GI bleeds before, will monitor for GI blood loss with these new anticoagulants (therapeutic Lovenox changing to therapeutic, high-dose Eliquis). If she has a recurrence of GI bleed she will need to be transferred to a facility with higher level of care, where they can insert an IVC filter. In addition, because this is a recurrence of PE, she will needa Hhematology work-up to see if she has a reason/provoked PEs, such as clotting propencity. I explained all the above to the patient and the plan today (2) Orthostatic hypotension Assessment/Plan: Patient is tachycardic at rest this morning, with heart rate of 107 in sinus rhythm. Her first set of orthostatic vital signs done today showed a systolic drop of 13 mmHg and a heart rate increase of 12 points. After receiving a Unit of blood, in the afternoon, she still had a drop of 18 mmHg in systolic BP. Plan: She is not yet ready for discharge, she was admitted to Inpatient status. Unfortunately, she has 2 problems: her large pulmonary embolism load which may be diminishing her LV preload, plus her marked anemia which is adding to the current orthostasis. Will continue to manage the PE with DOAC treatment and also follow her hemoglobin and transfuse if needed. Will continue to obtain orthostatic vital signs and adjust any meds, if needed. (3) Anemia Conclusion/Plan: Patient has a history of chronic anemia. She states she has not had a colonoscopy for over 15 years. She takes iron supplements. She had black stools in Mar 2022 which is why she stopped taking Eliquis and states that melana stopped after that. Labs were all reviewed. The hemoglobin fell to 7.1 yesterday and orthostatic vital signs were done and with tachycardia at rest, she has signs of orthostasis and hemodynamic instability. She was transfused 1 unit PRBC yesterday. Her Hgb augusta to 8.3 after that blood transfusion. Iron studies were done and show low Iron stores and saturation of 2%. Her guaiac stool test came back negative Plan: Follow CBC daily. Target hemoglobin for her will be 8, because of her severe symptoms in the face of an acute PE. We will continue with her dietary iron supplement. If she has a recurrence of GI bleed she will need to be transferred to a facility with higher level of care than can insert an IVC filter. She understands that currently the anticoagulant for the PE is necessary, especially since she had a heme-negative stool on guaic test. She will need evaluation by GI for recurrent GI bleeds as well as Heme eval, both after discharge since we have no GI or Hematology Specialists here (4) Pulmonary hypertension From her Echo done 09/30, she has a PA pressure of 72 mmHg. This is likely due to her PE and describes how severe her right heart strain is. She is very symptomatic with this: She describes that yesterday just standing and walking 2 steps made her dizzy as well as very tachypneic Plan: Continue with management as in #1 She will need an oximetry walk test on the day of discharge to see if she needs new home O2. I described to her what this is and she would agree to use home O2 if needed (5) Ulcerative colitis Conclusion/Plan: Patient states this is very mild and well controlled without medications or treatment. She states she goes years without flareups. Plan: We will monitor, no acute management required at this time. - Current Meds Current Meds: Current Medications Generic Name Dose Route Start Last Admin Trade Name Terrell PRN Reason Stop Dose Admin Apixaban 10 mg 09/30/22 21:00 10/01/22 08:51 Apixaban 5 Mg Tablet PO 10/07/22 09:01 10 mg BID JULI Administration Ferrous Sulfate 325 mg 09/30/22 09:00 10/01/22 08:51 Ferrous Sulfate 325 Mg Tablet PO 325 mg DAILY JULI Administration Multivitamins/Minerals 1 tab 09/30/22 09:00 10/01/22 08:52 Multivitamin W/Minerals Tablet PO 1 tab DAILY JULI Administration Sodium Chloride 10 ml 09/29/22 17:00 10/01/22 08:52 Sodium Chloride Flush 0.9% 10 Ml Syringe IVP 10 ml 0100,0900,1700 JULI Administration - Lab Result Fish Bone Diagrams: 10/02/22 05:14 10/02/22 05:14 - Additional Planning My Orders: My Active Orders 09/30/22 21:00 Apixaban [Eliquis] 10 mg PO BID 10/01/22 Evaluate and Treat PT [PT] Routine 10/01/22 09:04 Morphine Inj (Carpuject) [Morphine (Carpuject)] 2 mg IVP Q2HR PRN 10/01/22 16:00 HGB - HEMOGLOBIN [HEME] Timed Subjective - Subjective Patient Reports: Other (Slightly less short of breath with activity, slightly less dizzy when standing and was able to walk a short distance from bed to chair with PT, felt very weak) Objective Vital Signs: Vital Signs - 24 hr 09/30/22 09/30/22 09/30/22 15:03 18:00 22:00 Temperature 37.1 C 37.1 C 37.4 C Heart Rate [ Activity] Heart Rate [ 99 Brachial] Heart Rate [ 93 98 Monitoring electrodes] Heart Rate [ Sitting] Heart Rate [ Standing] Heart Rate [ Supine] Respiratory 16 20 18 Rate Blood Pressure [Activity] Blood Pressure 145/81 H 136/82 H 134/78 H [Right Brachial artery] Blood Pressure [Sitting] Blood Pressure [Standing] Blood Pressure [Supine] O2 Saturation 94 95 96 10/01/22 10/01/22 10/01/22 01:22 05:26 08:55 Temperature 37.2 C 37.0 C 37.1 C Heart Rate [ Activity] Heart Rate [ 90 81 96 Brachial] Heart Rate [ Monitoring electrodes] Heart Rate [ Sitting] Heart Rate [ Standing] Heart Rate [ Supine] Respiratory 18 18 16 Rate Blood Pressure [Activity] Blood Pressure 147/84 H 129/73 117/55 L [Right Brachial artery] Blood Pressure [Sitting] Blood Pressure [Standing] Blood Pressure [Supine] O2 Saturation 95 93 95 10/01/22 10/01/22 10:56 12:54 Temperature 37 C Heart Rate [ 92 Activity] Heart Rate [ 81 Brachial] Heart Rate [ Monitoring electrodes] Heart Rate [ 97 Sitting] Heart Rate [ 112 H Standing] Heart Rate [ 86 Supine] Respiratory 20 Rate Blood Pressure 125/65 [Activity] Blood Pressure 121/65 [Right Brachial artery] Blood Pressure 121/70 [Sitting] Blood Pressure 123/63 [Standing] Blood Pressure 126/72 [Supine] O2 Saturation 96 Oxygen O2 Source Room air I&O (Last 24 Hrs): Intake and Output Totals x24h 09/29/22 09/30/22 10/01/22 23:59 23:59 23:59 Intake Total 200 1020 770 Balance 200 1020 770 General: Alert, Oriented x3, Other (Pale) HEENT: Mucous membr. moist/pink Neck: Supple, No JVD Neuro: Alert, Non Focal Cardiovascular: Regular rate, Other (2/6 syst murmur) Respiratory: No respiratory distress (at rest), Rhonchi (at both bases posteriorly) Abdomen: Soft Extremities: No clubbing, No edema, No tenderness/swelling - Results Results: Laboratory Results WBC 6.5 x10^3/uL (4.8-10.8) 10/01/22 05:13 RBC 3.40 10^6/uL (4.20-5.40) L 10/01/22 05:13 Hgb 8.3 g/dL (12.0-16.0) L 10/01/22 05:13 Hct 29.5 % (37.0-47.0) L 10/01/22 05:13 MCV 86.8 fL (81.0-99.0) 10/01/22 05:13 MCH 24.4 pg (27.0-31.0) L 10/01/22 05:13 MCHC 28.1 g/dL (32.0-36.0) L 10/01/22 05:13 RDW 19.4 % (12.0-15.0) H 10/01/22 05:13 Plt Count 404 10^3/uL (130-450) 10/01/22 05:13 MPV 9.0 fL (7.9-10.8) 10/01/22 05:13 Neut # (Auto) 6.0 10^3/uL (1.5-6.6) 09/29/22 11:42 Lymph # (Auto) 0.8 10^3/uL (1.5-3.5) L 09/29/22 11:42 Nash # (Auto) 0.4 10^3/uL (0.0-1.0) 09/29/22 11:42 Eos # (Auto) 0.1 10^3/uL (0.0-0.7) 09/29/22 11:42 Baso # (Auto) 0.1 10^3/uL (0.0-0.1) 09/29/22 11:42 Absolute Nucleated RBC 0.07 x10^3/uL 09/29/22 11:42 Nucleated RBC % 0.9 /100WBC 09/29/22 11:42 Manual Slide Review Indicated 09/29/22 11:42 RBC Morph Micro Appear 2+ HYPOCHROMASIA (NORMAL) 1+ SCHISTOCYTES (NORMAL) 1+ OVALOCYTES (NORMAL) 1+ POLYCHROMASIA (NORMAL) 2+ ANISOCYTOSIS (NORMAL) 09/29/22 11:42 RBC Morph Micro Appear 2+ HYPOCHROMASIA (NORMAL) 1+ SCHISTOCYTES (NORMAL) 1+ OVALOCYTES (NORMAL) 1+ POLYCHROMASIA (NORMAL) 2+ ANISOCYTOSIS (NORMAL) 09/29/22 11:42 RBC Morph Micro Appear 2+ HYPOCHROMASIA (NORMAL) 1+ SCHISTOCYTES (NORMAL) 1+ OVALOCYTES (NORMAL) 1+ POLYCHROMASIA (NORMAL) 2+ ANISOCYTOSIS (NORMAL) 09/29/22 11:42 RBC Morph Micro Appear 2+ HYPOCHROMASIA (NORMAL) 1+ SCHISTOCYTES (NORMAL) 1+ OVALOCYTES (NORMAL) 1+ POLYCHROMASIA (NORMAL) 2+ ANISOCYTOSIS (NORMAL) 09/29/22 11:42 RBC Morph Micro Appear 2+ HYPOCHROMASIA (NORMAL) 1+ SCHISTOCYTES (NORMAL) 1+ OVALOCYTES (NORMAL) 1+ POLYCHROMASIA (NORMAL) 2+ ANISOCYTOSIS (NORMAL) 09/29/22 11:42 PT 11.5 secs (9.9-12.6) 09/29/22 11:42 INR 1.0 (0.8-1.2) 09/29/22 11:42 D-Dimer 781.5 ng/mL (200.0-255.0) H 09/29/22 11:43 Sodium 137 mmol/L (135-145) 10/01/22 05:13 Potassium 4.1 mmol/L (3.5-5.0) 10/01/22 05:13 Chloride 106 mmol/L (101-111) 10/01/22 05:13 Carbon Dioxide 25 mmol/L (21-32) 10/01/22 05:13 Anion Gap 6.0 (6-13) 10/01/22 05:13 BUN 18 mg/dL (6-20) 10/01/22 05:13 Creatinine 0.7 mg/dL (0.4-1.0) 10/01/22 05:13 Estimated GFR (MDRD) 82 (>89) L 10/01/22 05:13 Glucose 119 mg/dL (70-100) H 10/01/22 05:13 Calcium 8.4 mg/dL (8.5-10.3) L 10/01/22 05:13 Iron 10 ug/dL (28-170) L 09/30/22 04:36 TIBC 448 ug/dL (250-450) 09/30/22 04:36 % Saturation 2 % (20-50) L 09/30/22 04:36 Transferrin 320 mg/dL (192-382) 09/30/22 04:36 Total Bilirubin 0.3 mg/dL (0.2-1.0) 09/29/22 11:42 AST 22 IU/L (10-42) 09/29/22 11:42 ALT 19 IU/L (10-60) 09/29/22 11:42 Alkaline Phosphatase 84 IU/L (42-121) 09/29/22 11:42 Troponin I High Sens 8.3 ng/L (2.3-14.8) 09/29/22 11:42 B-Natriuretic Peptide 73 pg/mL (5-100) 09/29/22 11:42 Total Protein 7.0 g/dL (6.7-8.2) 09/29/22 11:42 Albumin 3.9 g/dL (3.2-5.5) 09/29/22 11:42 Globulin 3.1 g/dL (2.1-4.2) 09/29/22 11:42 Albumin/Globulin Ratio 1.3 (1.0-2.2) 09/29/22 11:42 Lipase 31 U/L (22-51) 09/29/22 11:42 Blood Type O NEGATIVE 09/30/22 10:36 Antibody Screen NEGATIVE 09/30/22 10:36 Crossmatch IS Only See Detail 09/30/22 10:36
[2022-10-02] MEDS: SODIUM CHLORIDE FLUSH 0.9% 10 ML SYRINGE IVP SCH ×2 (01:00→08:09)
[2022-10-02 05:21] LABS: HCT - HEMATOCRIT 29.7 % (37.0-47.0); HGB - HEMOGLOBIN 8.4 g/dL (12.0-16.0); MEAN CORPUSCULAR HEMOGLOBIN 24.8 pg (27.0-31.0); MEAN CORPUSCULAR HGB CONC 28.3 g/dL (32.0-36.0); MEAN CORPUSCULAR VOLUME 87.6 fL (81.0-99.0); MEAN PLATELET VOLUME 8.9 fL (7.9-10.8); RED BLOOD COUNT 3.39 10^6/uL (4.20-5.40); RED CELL DISTRIBUTION WIDTH 19.5 % (12.0-15.0)
[2022-10-02 05:28] LABS: CALCIUM 8.7 mg/dL (8.5-10.3); CREATININE 0.8 mg/dL (0.4-1.0); POTASSIUM 4.4 mmol/L (3.5-5.0)
[2022-10-02] MEDS: FERROUS SULFATE 325 MG TABLET PO SCH (08:09)
[2022-10-02] MEDS: APIXABAN 5 MG TABLET PO SCH (08:09)
[2022-10-02] MEDS: MULTIVITAMIN W/MINERALS TABLET PO SCH (08:09)
--- NOTE | 2022-10-02 11:54 | DISCHARGE SUMMARY ---
Discharge Summary Admit Date: 09/29/22 Discharge Date: 10/02/22 Discharging Provider: Dr Yumiko Chong Primary Care Provider: Pending with Zoila Puente NP Condition at Discharge: Stable Discharge Disposition: 01 Home, Self Care - HPI History of Present Illness: This patient is a 72-year-old female with a past medical history of PE approximately 18 months ago, history of ulcerative colitis, chronic anemia,who presented to the ED after progressively worsening shortness of breath and dyspnea on exertion that she states has never really gone away for at least the last year since her first pulmonary embolus but had culminated in the last few weeks after she developed a respiratory infection. She decided to come in to get it checked out because she started to have difficulty ambulating within her house[place]. She states after her last PE she was given a prescription for Eliquis and she followed up with the PCP who gave her a prescription with refills up to 1 year. The refills ran out in March 2022. Around that time she started to notice what looked like dark stools and she suspected a GI bleed so she stopped taking the Eliquis. Since that time she is had no follow-up. In the ED today, she presented again anemic with a hemoglobin of 7.7 and complaining of shortness of air however her oxygen saturation on room air was normal. CT angiogram showed right-sided segmental pulmonary embolus, larger than the previous episode, with evidence of right heart strain. Lab work was relatively unremarkable and the patient's physical exam was reassuring however given her history hospital admission for observation was requested. She was given 1 dose of therapeutic Lovenox prior to admission. - HOSPITAL COURSE Hospital Course: (1) Pulmonary embolism (Acute cor pulmonale presence: with acute cor pulmonale Code: I26.09 - Other pulmonary embolism with acute cor pulmonale) Patient presented with symptomatic pulmonary embolus. She was severely tachypneic as well as orthostatic with activity. There was no chest pain. CT images showed bilateral pulmonary emboli. She was started on therapeutic Lovenox BID then transitioned to high dose Eliquis 10 mg twice daily for PE treatment. Her Echocardiogram was done and confirmed right heart strain; she has a dilated R heart and severe pulm HTN , PA pressure 72 mmHg. She was very tachycardic and symptomatic with lightheadedness and dyspnea when moving. I suspect her clot burden in the lungs was so high that she had diminished LV preload. We admitted her from Observation status to Inpatient status due to orthostasis, continued Eliquis 10 mg BID and monitored her for GI blood loss, since, if she has a recurrence of GI bleed, she would need to be transferred to a facility with higher level of care, where they can insert an IVC filter. Because this is a recurrence of PE, she will need a Hematology work-up to see if she has a reason/provoked PEs, such as clotting propencity. She told the admitting provider that she had Eliquis 5 mg doses at home and was cutting these in half using 2.5 BID, before stopping that entirely in 03/2022, due to black stools. I discussed with her that the proper Eliquis dose is 10 mg twice daily for 1 week, then 5 mg bid, not 2.5 mg bid. (2) Orthostatic hypotension She was orthostatic and was admitted to Inpatient status for further management. Unfortunately, she has 2 problems: her large pulmonary embolism load which may be diminishing her LV preload, plus her marked anemia which was adding to the current orthostasis. We had to continue to manage the PE with DOAC treatment and also gave her a blood transfusion of 1 Unit of blood. (3) Anemia Patient has a history of chronic anemia. She states she has not had a colonoscopy for over 15 years. She takes iron supplements. She had black stools in Mar 2022 which is why she stopped taking Eliquis and states that melana stopped after that. Her hemoglobin at admission was 8 and fell to 7.1 the following day and she was orthostatic. She was transfused 1 unit PRBCs. Her Hgb augusta to 8.3. Iron studies were done and showed low Iron stores and saturation of 2%. Her guaiac stool test came back negative. We continued her dietary iron sup plement. She will need evaluation by GI for possible recurrent GI bleeds, as well as the Hematology evaluation, after discharge. (4) Pulmonary hypertension From her Echo done 09/30, she has RV enlargement and a PA pressure of 72 mmHg. This pulm HTN is likely due to her PE, and describes how severe her right heart strain is. She was very symptomatic with this: walking 2 steps made her dizzy as well as very tachypneic. She underwent an oximetry walk test on the day of discharge and did not desaturate to need a new home O2 order. (5) Ulcerative colitis Patient stated this is very mild and well controlled without medications or treatment. She states she goes years without flareups. - ALLERGIES Allergies/Adverse Reactions: Allergies Allergy/AdvReac Type Severity Reaction Status Date / Time No Known Drug Allergies Allergy Verified 09/29/22 11:10 - MEDICATIONS Home Medications: Ambulatory Orders Medication Instructions Recorded Confirmed Ferrous Sulfate [Feosol] 1 tab PO Q48H 09/29/22 09/29/22 Molasses 30 ml PO TID 09/29/22 09/29/22 Multivitamin W/Minerals [Theragran 1 tab PO DAILY 09/29/22 09/29/22 M] Apixaban [Eliquis] 5 mg PO BID #70 tab 10/02/22 Ferrous Gluconate [Fergon] 324 mg PO DAILY #30 tablet 10/02/22 - PHYSICAL EXAM AT DISCHARGE General Appearance: positive: No acute distress, Alert Eyes Bilateral: positive: Normal inspection, EOMI ENT: positive: ENT inspection nml, No signs of dehydration Neck: positive: Nml inspection, No JVD Respiratory: positive: No respiratory distress, Breath sounds nml Cardiovascular: positive: Regular rate & rhythm, Systolic murmur Abdomen: positive: Non-tender, No distention Skin: positive: Warm, Dry, Pallor Extremities: positive: Non-tender, No pedal edema Neurologic/Psychiatric: positive: Oriented x3, Motor nml - LABS Result Diagrams: 10/02/22 05:14 10/02/22 05:14 - DIAGNOSTIC IMAGING Diagnostic Imaging Results: Final report reviewed - FOLLOW UP Follow Up: Appointment with Zoila Puente NP was arranged for . - TIME SPENT Time Spent in Discharge (Minutes): 55
--- NOTE | 2022-10-02 12:02 | Discharge Plan ---
Discharge Plan Problem Reviewed?: Yes Disposition: Home, Self Care Condition: Stable Prescriptions: Apixaban [Eliquis] 5 mg PO BID #70 tab Ferrous Gluconate [Fergon] 324 mg PO DAILY #30 tablet Diet: Regular Activity Restrictions: Activity as Tolerated Shower Restrictions: No Driving Restrictions: No Instruction Topics: Apixaban oral tablets, Embolism Pulmonary, IVC Filter Placement About, IVC Filter Placement Tx Health Concerns: You were hospitalized to treat complications of having recurrent blood clots in your lungs (pulmonary embolism). The clots are causing strain on your right heart and high pressure in your lungs. The clots were also adding to your dizziness and weakness when you were upright, in the standing or walking position. To treat the blood clots, you received Lovenox at high, therapeutic doses first, then you have been transitioned to take high doses of the blood thinner Eliquis. We monitored you to see if the Eliquis would cause any rebleeding in your colon and thus far it has not. You were found to be severely anemic, and you knew that you had an iron deficiency anemia. You needed 1 unit of blood to be transfused because the anemia was so severe. This has helped with the upright dizziness feeling, your shortness of breath, and your overall weakness. You are being discharged home today with newly prescribed Eliquis 10 mg twice a day to take for 5 more days then decrease to 5 mg a day. These are the proper doses needed for treatment of the clots in your lungs. DO NOT be taking the Eliquis at the 2.5 mg twice a day dose, as you took last year. That dose is inadequate to treat the problem that you have. You ARE ALLOWED to use the 5 mg doses, if you still have them, to equal 10 mg twice a day for 5 more days, then drop to 5 mg twice a day. You may resume all your other pre-hospital medications that you took. You are also being discharged home with a new prescription for daily iron tablets. Your symptoms of weakness and lightheadedness and shortness of breath improved every day. All new prescriptions were electronically sent to your [facility] in [place]. You were tested to see if needed an order for new home oxygen and you do not, your oxygen levels stay in a good range. An appointment to a new Primary Care Provider has been obtained for you to see Zoila Puente NP, at the clinic on [address] in [place], on October 08, 2022 at 10:20 a.m. It is advised that the new primary care provider give you a referral to a specialist to put in a filter in your IVC (inferior vena cava), which would prevent future clots from going into your lungs without having you be on lifelong blood thinners. You also need a referral to determine why you get r epeat blood clots, this would be an evaluation by Engineering Coordinator. Plan of Treatment: As above. Care Goals: Improvement in symptoms and stabilization are the goal. Assessment: The patient understands and is in agreement with the plan. Additional Instructions or Follow Up instructions: If you have any new or worsening symptoms, call your PCP for advice, or come to the ER. No Smoking: If you smoke, Please STOP! Call for help. Follow-up with: Zoila Velasquez ARNP [Provider Admit Priv/Credential] -
[2022-10-02 12:32] VITALS: BP 125/68
== END 2022-10-02 13:42 | disposition home or self-care (01) | DRG 175 ==
LOC: ED 10:55 → MS2 13:51 → OBSVTOIN 09-30 15:22
PROVIDERS: ADMIT Family Medicine Sports Medicine; ATTEND Internal Medicine
DX: I26.99 Other pulmonary embolism without acute cor pulmonale (principal); D64.9 Anemia, unspecified; Z87.19 Personal history of other diseases of the digestive system; I26.09 Other pulmonary embolism with acute cor pulmonale; K51.90 Ulcerative colitis, unspecified, without complications; I95.1 Orthostatic hypotension; I27.20 Pulmonary hypertension, unspecified; R00.0 Tachycardia, unspecified; I51.9 Heart disease, unspecified; D50.9 Iron deficiency anemia, unspecified
CPT/HCPCS: 36415; 36430; 71045; 71275; 80048; 80053; 82272; 83540; 83690; 83880; 84466; 84484; 85018; 85025; 85027; 85379; 85610; 86850; 86900; 86901; 86920; 93005; 93306; 94761; 96372; 97161; 99285; A9270; G0378; J1650; P9016; Q9967

== ENCOUNTER 2022-10-20 09:55 | Outpatient (CLI) | payer MEDICARE, OTHER ==
[2022-10-20 10:19] LABS: BASOPHILS # (AUTO) 0.1 10^3/uL (0.0-0.1); BASOPHILS % (AUTO) 1.1 %; EOSINOPHILS # (AUTO) 0.2 10^3/uL (0.0-0.7); EOSINOPHILS % (AUTO) 3.3 %; HCT - HEMATOCRIT 35.9 % (37.0-47.0); HGB - HEMOGLOBIN 10.3 g/dL (12.0-16.0); LYMPHOCYTES # (AUTO) 1.2 10^3/uL (1.5-3.5); MEAN CORPUSCULAR HEMOGLOBIN 25.6 pg (27.0-31.0); MEAN CORPUSCULAR HGB CONC 28.7 g/dL (32.0-36.0); MEAN CORPUSCULAR VOLUME 89.3 fL (81.0-99.0); MEAN PLATELET VOLUME 9.2 fL (7.9-10.8); MONOCYTES # (AUTO) 0.5 10^3/uL (0.0-1.0); NEUTROPHILS # (AUTO) 3.5 10^3/uL (1.5-6.6); NEUTROPHILS % (AUTO) 64.2 %; PLT - PLATELET COUNT 457 10^3/uL (130-450); RED BLOOD COUNT 4.02 10^6/uL (4.20-5.40); WHITE BLOOD COUNT 5.4 x10^3/uL (4.8-10.8)
[2022-10-20 10:57] LABS: ALBUMIN 3.8 g/dL (3.2-5.5); ALBUMIN/GLOBULIN RATIO 1.2 (1.0-2.2); BILIRUBIN,TOTAL 0.5 mg/dL (0.2-1.0); CALCIUM 9.2 mg/dL (8.5-10.3); CREATININE 0.7 mg/dL (0.4-1.0); POTASSIUM 4.1 mmol/L (3.5-5.0)
== END 2022-10-20 09:56 | disposition home or self-care (01) ==
LOC: LAB 09:55
PROVIDERS: ATTEND Nurse Practitioner Family
DX: K51.90 Ulcerative colitis, unspecified, without complications (principal); K92.2 Gastrointestinal hemorrhage, unspecified; E61.1 Iron deficiency; Z79.01 Long term (current) use of anticoagulants; Z86.711 Personal history of pulmonary embolism; I26.09 Other pulmonary embolism with acute cor pulmonale
CPT/HCPCS: 36415; 80053; 82728; 83540; 84466; 85025

== ENCOUNTER 2022-10-20 09:57 | Outpatient (CLI) | payer MEDICARE, OTHER ==
--- NOTE | 2022-10-21 09:17 | Mammography Report ---
BILATERAL DIGITAL SCREENING MAMMOGRAM 3D/2D: 10/20/2022 CLINICAL: Baseline exam. Routine screening. No prior exams were available for comparison. Both breasts are heterogeneously dense, which may obscure small masses (category c / 51-75% glandular tissue). There are benign calcifications in both breasts. No significant masses, calcifications, or other findings are seen in either breast. IMPRESSION: BENIGN There is no mammographic evidence of malignancy. A 1 year screening mammogram is recommended. Based on the Tyrer Cuzick model (a risk assessment model) the patients lifetime risk is 6.9% and her 10 year risk is 5.6%. According to the ACR, ACS, and NCCN guidelines, an annual breast MRI exam arie g with mammogram is recommended if the patients lifetime risk is 20% or greater. This exam was interpreted at Station ID: [id number]. NOTE: For mammograms, a report in lay terms will be sent to the patient. Approximately 15% of breast malignancies will not be visualized mammographically. In the management of a palpable breast mass, a negative mammogram must not discourage biopsy of a clinically suspicious lesion. Electronically Signed By: Grady lane/rowdy:10/20/2022 17:26:49 copy to: MORELIA WESTFALL letter sent: No_Letter ACR BI-RADS Category 2: Benign Finding(s) 3342F PARENCHYMAL PATTERN: (D) - The breast(s) demonstrate(s) heterogeneously dense fibroglandular nathanael gonzalez. BI-RADS CATEGORY: (2) - 2 Mammogram [id number] 1 year screening LATERALITY: (B)
== END 2022-10-20 09:58 | disposition home or self-care (01) ==
LOC: DI 09:57
DX: Z12.31 Encounter for screening mammogram for malignant neoplasm of breast (principal)

== ENCOUNTER 2022-11-04 09:37 | Outpatient (CLI) | payer MEDICARE, OTHER ==
[2022-11-04 09:53] LABS: BASOPHILS # (AUTO) 0.1 10^3/uL (0.0-0.1); BASOPHILS % (AUTO) 1.1 %; EOSINOPHILS # (AUTO) 0.1 10^3/uL (0.0-0.7); EOSINOPHILS % (AUTO) 2.4 %; HCT - HEMATOCRIT 38.4 % (37.0-47.0); HGB - HEMOGLOBIN 11.1 g/dL (12.0-16.0); LYMPHOCYTES # (AUTO) 1.2 10^3/uL (1.5-3.5); LYMPHOCYTES % (AUTO) 21.6 %; MEAN CORPUSCULAR HEMOGLOBIN 26.4 pg (27.0-31.0); MEAN CORPUSCULAR HGB CONC 28.9 g/dL (32.0-36.0); MEAN CORPUSCULAR VOLUME 91.2 fL (81.0-99.0); MEAN PLATELET VOLUME 9.5 fL (7.9-10.8); MONOCYTES # (AUTO) 0.5 10^3/uL (0.0-1.0); MONOCYTES % (AUTO) 8.6 %; NEUTROPHILS # (AUTO) 3.5 10^3/uL (1.5-6.6); NEUTROPHILS % (AUTO) 65.9 %; PLT - PLATELET COUNT 256 10^3/uL (130-450); RED BLOOD COUNT 4.21 10^6/uL (4.20-5.40); RED CELL DISTRIBUTION WIDTH 18.1 % (12.0-15.0); WHITE BLOOD COUNT 5.3 x10^3/uL (4.8-10.8)
[2022-11-04 10:02] LABS: CALCIUM 9.2 mg/dL (8.5-10.3); CREATININE 0.8 mg/dL (0.4-1.0); POTASSIUM 4.6 mmol/L (3.5-5.0)
== END 2022-11-04 09:38 | disposition home or self-care (01) ==
LOC: LAB 09:37
PROVIDERS: ATTEND Internal Medicine Cardiovascular Disease
DX: I26.09 Other pulmonary embolism with acute cor pulmonale (principal)
CPT/HCPCS: 36415; 80048; 85025

== ENCOUNTER 2023-01-16 13:37 | Outpatient (CLI) | payer MEDICARE, OTHER ==
[2023-01-16 13:52] LABS: BASOPHILS # (AUTO) 0.1 10^3/uL (0.0-0.1); BASOPHILS % (AUTO) 0.9 %; EOSINOPHILS # (AUTO) 0.2 10^3/uL (0.0-0.7); HCT - HEMATOCRIT 39.9 % (37.0-47.0); HGB - HEMOGLOBIN 12.5 g/dL (12.0-16.0); LYMPHOCYTES # (AUTO) 1.5 10^3/uL (1.5-3.5); LYMPHOCYTES % (AUTO) 26.8 %; MEAN CORPUSCULAR HEMOGLOBIN 28.7 pg (27.0-31.0); MEAN CORPUSCULAR HGB CONC 31.3 g/dL (32.0-36.0); MEAN CORPUSCULAR VOLUME 91.7 fL (81.0-99.0); MEAN PLATELET VOLUME 9.4 fL (7.9-10.8); MONOCYTES # (AUTO) 0.5 10^3/uL (0.0-1.0); MONOCYTES % (AUTO) 8.9 %; NEUTROPHILS # (AUTO) 3.3 10^3/uL (1.5-6.6); PLT - PLATELET COUNT 283 10^3/uL (130-450); RED BLOOD COUNT 4.35 10^6/uL (4.20-5.40); RED CELL DISTRIBUTION WIDTH 15.6 % (12.0-15.0); WHITE BLOOD COUNT 5.4 x10^3/uL (4.8-10.8)
[2023-01-16 14:09] LABS: ALBUMIN 4.1 g/dL (3.2-5.5); ALBUMIN/GLOBULIN RATIO 1.5 (1.0-2.2); BILIRUBIN,TOTAL 0.2 mg/dL (0.2-1.0); CALCIUM 9.6 mg/dL (8.5-10.3); CREATININE 0.7 mg/dL (0.6-1.3); POTASSIUM 3.8 mmol/L (3.5-4.5); TOTAL PROTEIN 6.9 g/dL (6.4-8.9)
[2023-01-16 14:27] LABS: FERRITIN 20.8 ng/mL (11.0-306.8)
== END 2023-01-16 13:38 | disposition home or self-care (01) ==
LOC: LAB 13:37
PROVIDERS: ATTEND Family Medicine
DX: K92.2 Gastrointestinal hemorrhage, unspecified (principal)
CPT/HCPCS: 36415; 80053; 82728; 83540; 84466; 85025